=== PATIENT | male | born 1990 | race Caucasian/White ===

== ENCOUNTER 2016-10-03 11:38 | Emergency (ER) | payer MEDICAID ==
[~2016-10-03] VITALS: Ht 182.9 cm; Wt 69.4 kg
[2016-10-03 11:38] VITALS: BP_SYST 140
[2016-10-03 12:40] VITALS: BP_SYST 135
== END 2016-10-03 12:40 | disposition home or self-care (01) ==
LOC: SED 11:41
DX: S20.20XA Contusion of thorax, unspecified, initial encounter (principal); W03.XXXA Other fall on same level due to collision with another person, initial encounter; Y93.89 Activity, other specified; Y92.89 Other specified places as the place of occurrence of the external cause; Y99.8 Other external cause status
CPT/HCPCS: 71100; 99284

== ENCOUNTER 2017-05-02 12:46 | Emergency (ER) | payer MEDICAID ==
[~2017-05-02] VITALS: Ht 182.9 cm; Wt 68.0 kg
[2017-05-02 12:54] VITALS: BP_SYST 119
[2017-05-02 13:05] VITALS: BP_SYST 119
== END 2017-05-02 13:05 | disposition home or self-care (01) ==
LOC: SED 12:46
DX: B35.9 Dermatophytosis, unspecified (principal)
CPT/HCPCS: 99282